=== PATIENT | female | born 1990 | race Two or more races ===

== ENCOUNTER 2016-08-05 00:36 | Emergency (ER) | payer MEDICAID ==
[~2016-08-05] VITALS: Ht 160 cm; Wt 54.4 kg
[2016-08-05 00:44] VITALS: BP 126/75
== END 2016-08-05 03:00 | disposition left against medical advice (07) ==
LOC: ER 00:42
DX: M79.644 Pain in right finger(s) (principal); Z53.21 Procedure and treatment not carried out due to patient leaving prior to being seen by health care provider
CPT/HCPCS: 73130

== ENCOUNTER 2018-07-10 21:56 | Emergency (ER) | payer SELFPAY ==
[~2018-07-10] VITALS: Ht 160 cm; Wt 101.2 kg
[2018-07-10 22:40] VITALS: BP 115/72
== END 2018-07-11 02:10 | disposition home or self-care (01) ==
LOC: ER 21:56
DX: S43.401A Unspecified sprain of right shoulder joint, initial encounter (principal); Z88.8 Allergy status to other drugs, medicaments and biological substances; W01.0XXA Fall on same level from slipping, tripping and stumbling without subsequent striking against object, initial encounter; Y93.89 Activity, other specified; Y99.8 Other external cause status; Y92.89 Other specified places as the place of occurrence of the external cause
CPT/HCPCS: 73030